=== PATIENT | female | born 1955 | race Caucasian/White ===

== ENCOUNTER 2016-11-28 14:20 | Emergency (ER) | payer OTHER ==
[2016-11-28] MEDS ORDERED: Labetalol HCl 100 MG/20 ML VIAL ONE (14:47)
[2016-11-28] MEDS ORDERED: Lorazepam 2 MG/ML VIAL ONE (14:47)
[2016-11-28 14:56] LABS: #Basophils 0.2 thou/uL (0.0-0.2); #Eosinphils 0.2 thou/uL (0.0-0.7); #Lymphocytes 2.4 thou/uL (1.20-3.40); #Monocytes 0.9 thou/uL (0.11-0.59); #Neutrophils 5.1 thou/uL (1.40-6.50); %Basophils 2.1 % (0.0-1.0); %Eosinophils 2.8 % (0.0-10.0); %Lymphocytes 27.5 % (21.0-51.0); %Monocytes 9.9 % (0.0-10.0); %Neutrophils 57.8 % (42.0-75.0); Hemoglobin 16.2 g/dL (12.0-16.0); Mean Corpuscular HGB CONC 32.9 g/dL (32.0-36.0); Mean Corpuscular Hemoglobin 30.7 pg (27.0-31.0); Mean Corpuscular Volume 93.4 fl (81.0-99.0); Platelet Count 211 thou/uL (130-400); RBC Distribution Width 11.4 % (11.5-14.5); Red Blood Cell (RBC) Count 5.28 mill/uL (4.20-5.40); White Blood Cell (WBC) Count 8.8 thou/uL (4.8-10.8)
[2016-11-28 15:01] LABS: Bilirubin Negative (Negative); Blood, Urine Small (Negative); Clarity Clear (Clear); Glucose, Urine (Dipstick) Negative (Negative); Leukocyte Trace (Negative); Nitrite Negative (Negative); Protein, Urine (Dipstick) Negative (Neg-Trace); Urobilinogen 0.2 mg/dL (0.2-1.0)
[2016-11-28 15:03] LABS: PTT 30.3 SEC (22.9-36.1); Prothrombin Time 13.2 SEC (12.0-14.7)
[2016-11-28 15:04] LABS: D-Dimer Test Less than 0.27 *mcg/mL (0.27-0.43)
--- NOTE | 2016-11-28 15:07 | CT ---
CT BRAIN WITHOUT CONTRAST: Date: 11/28/16 HISTORY: Left hand tingling, hypertension, stroke protocol. FINDINGS: No evidence of infarct, hemorrhage, midline shift, or abnormal extra-axial fluid collections are see n. The ventricular size is appropriate and the basilar cisterns are patent. Vascular calcifications are present. The bony calvarium is intact. The visualized paranasal sinuses and mastoid air cells ar e well aerated. IMPRESSION: No CT evidence of acute intracranial process. Discussed over the telephone with ER physician, Dr. Cheung, at 1447 hours. CODE CR. POS: [facility]
[2016-11-28 15:20] LABS: Squamous Epithelial 0-3 HPF (0-3); WBC/HPF 0-3 HPF (0-3)
[2016-11-28 15:22] LABS: ALT (SGPT) 17 U/L (8-55); AST (SGOT) 20 U/L (5-34); Albumin 4.4 g/dL (3.4-4.8); Alkaline Phosphatase 66 U/L (40-150); Anion Gap 15 mmol/L (10-20); BUN (Urea Nitrogen) 12 mg/dL (9.8-20.1); Bilirubin, Total 0.6 mg/dL (0.2-1.2); Calc. Creatinine Clearance 0 mL/min (70-130); Calcium 9.8 mg/dL (7.8-10.44); Carbon Dioxide 26 mmol/L (23-31); Chloride 102 mmol/L (98-107); Estimated GFR-MDRD 74; Globulin 3.3 g/dL (2.4-3.5); Glucose 103 mg/dL (80-115); Potassium 3.8 mmol/L (3.5-5.1); Protein, Total 7.7 g/dL (6.0-8.3); Sodium 139 mmol/L (136-145)
[2016-11-28] MEDS ORDERED: cefTRIAXone\\ROCEPHIN 1 GM VIAL ONE (17:45)
[2016-11-28] MEDS ORDERED: Sodium Chloride 0.9% 100 ML ONE (17:45)
[2016-11-28] MEDS ORDERED: NIFEdipine XL 30 MG TAB ONE (17:52)
== END 2016-11-28 18:36 | disposition home or self-care (01) ==
LOC: NAV ERS 14:20
DX: G93.2 Benign intracranial hypertension (principal); N39.0 Urinary tract infection, site not specified; I48.91 Unspecified atrial fibrillation; I10 Essential (primary) hypertension; F41.9 Anxiety disorder, unspecified
CPT/HCPCS: 36416; 70450; 80053; 81003; 81015; 85025; 85379; 85610; 85730; 96365; 96375; 36415-59; J0696; J2060; J7050

== ENCOUNTER 2018-05-31 01:32 | Emergency (ER) | payer OTHER ==
[2018-05-31] MEDS ORDERED: Aspirin Chewable 81 MG TAB ONE (01:54)
[2018-05-31 01:55] LABS: #Basophils 0.2 thou/uL (0.0-0.2); #Eosinphils 0.6 thou/uL (0.0-0.7); #Lymphocytes 2.8 thou/uL (1.20-3.40); #Monocytes 0.8 thou/uL (0.11-0.59); #Neutrophils 3.6 thou/uL (1.40-6.50); %Basophils 2.2 % (0.0-1.0); %Eosinophils 7.6 % (0.0-10.0); %Lymphocytes 35.3 % (21.0-51.0); %Monocytes 9.5 % (0.0-10.0); %Neutrophils 45.4 % (42.0-75.0); Hemoglobin 15.5 g/dL (12.0-16.0); Mean Corpuscular HGB CONC 32.3 g/dL (32.0-36.0); Mean Corpuscular Hemoglobin 30.4 pg (27.0-31.0); Mean Corpuscular Volume 94.2 fL (78.0-98.0); Mean Platelet Volume 7.8 fL (7.4-10.4); Platelet Count 279 thou/uL (130-400); RBC Distribution Width 12.6 % (11.5-14.5); Red Blood Cell (RBC) Count 5.08 mill/uL (4.20-5.40)
[2018-05-31 02:13] LABS: ALT (SGPT) 18 U/L (8-55); AST (SGOT) 23 U/L (5-34); Albumin 4.4 g/dL (3.4-4.8); Alkaline Phosphatase 61 U/L (40-150); Anion Gap 13 mmol/L (10-20); BUN (Urea Nitrogen) 10 mg/dL (9.8-20.1); Bilirubin, Total 0.3 mg/dL (0.2-1.2); Calc. Creatinine Clearance 0 mL/min (70-130); Calcium 9.7 mg/dL (7.8-10.44); Carbon Dioxide 25 mmol/L (23-31); Chloride 105 mmol/L (98-107); Estimated GFR-MDRD 85; Globulin 2.9 g/dL (2.4-3.5); Glucose 107 mg/dL (80-115); Lipase 81 U/L (8-78); Magnesium 2.2 mg/dL (1.6-2.6); Potassium 4.2 mmol/L (3.5-5.1); Protein, Total 7.3 g/dL (6.0-8.3); Sodium 139 mmol/L (136-145)
[2018-05-31] MEDS ORDERED: Enoxaparin Sodium 80 MG/0.8 ML SYRINGE ONE (02:34)
[2018-05-31 02:39] LABS: CKMB 1.6 ng/mL (0-6.6)
--- NOTE | 2018-05-31 08:07 | RAD ---
TWO VIEWS CHEST: DTAE: 05/31/2018. COMPARISON: None. HISTORY: Shortness of breath and chest pain/pressure. FINDINGS: There is no pneumothorax, pleural fluid, focal consolidation, or alveolar edema. Heart and mediastin al contours demonstrate mild prominence of the cardiac silhouette. IMPRESSION: No focal consolidation or alveolar edema. POS: [facility]
== END 2018-05-31 02:50 | disposition short-term general hospital (02) ==
LOC: NAV ERS 01:32
DX: I21.4 Non-ST elevation (NSTEMI) myocardial infarction (principal); R79.89 Other specified abnormal findings of blood chemistry; E78.5 Hyperlipidemia, unspecified; I48.91 Unspecified atrial fibrillation; I10 Essential (primary) hypertension; Z87.891 Personal history of nicotine dependence; F41.9 Anxiety disorder, unspecified; Z79.899 Other long term (current) drug therapy
CPT/HCPCS: 36415; 71046; 80053; 82553; 83690; 83735; 84484; 85025; 93005; 94760; 96372; J1650